=== PATIENT | male | born 1935 | race Caucasian/White ===

== ENCOUNTER → 2017-05-16 | Outpatient (CLI) | payer MEDICARE, OTHER ==
[~2017-05-16] MED LIST: ACETAMINOPHEN1 EAC4 PO; ADVIL200 MG PO; ALER-CAP25 M2 PO; ALPRAZOLAM0.25 M2 PO; ANTIBIOTIC; ASCORBIC ACID500 M3 PO; BISAC-EVAC10 MG PR; Cipro PO; DEXILANT30 MG PO; DEXILANT60 MG PO; DIAZEPAM5 MG PO; DILAUDID1 MG/ML IV; DURAGESIC12 MCG TD; DURAGESIC75 MCG TD; ENDOCET 5-3251 EACH PO; ENDOCET 7.5-321 EACH; FENTANYL1 EAC4 TD; FIORICET 50-301 EACH PO; FOLIC ACID1 MG PO; HYDROCODON-ACE1 EAC7 PO; HYDROCODON-ACE1 EAC8 PO; LORCET HD 10-31 EACH PO; MOTRIN IB200 MG PO; NEURONTIN300 MG PO; NORCO 10/3251 TABLET PO; ONDANSETRON4 MG/2 ML IV; PANTOPRAZOLE SO40 MG PO; POLYETHYLENE GL17 GM PO; ROXICODONE5 MG PO; SENNA8.6 MG PO; THERAGRAN1 TABLET PO; TYLENOL REGULA325 MG PO; Tylenol Regular Stre PO; Ultram PO; VIAGRA50 MG PO; ZANAFLEX4 MG PO; ZOFRAN ODT8 MG PO
== END | disposition home or self-care (01) ==
DX: R13.11 Dysphagia, oral phase (principal); R13.13 Dysphagia, pharyngeal phase; R07.0 Pain in throat
CPT/HCPCS: 92611 GN; G8996 GN; G8997 GN; G8998 GN

== ENCOUNTER 2017-09-23 15:34 | Inpatient (IN) | payer OTHER ==
[~2017-09-23] VITALS: Ht 175.3 cm; Wt 71.3 kg
[2017-09-23 16:07] LABS: EOSINOPHIL (%) 0 % (0-5); HEMATOCRIT 30.6 % (38.0-50.0); IMMATURE GRANULOCYTE (%) 0.1 % (0.0-0.7); INSTRUMENT ABS NEUTROPHIL CT 7.9 K/uL; LYMPHOCYTE COUNT 0.2 K/uL (1.0-2.8); MCH 28.9 PG (29.0-34.0); MCV 87.4 FL (86-99); MONOCYTE (%) 0.1 % (3-12); NEUTROPHIL (%) 97.8 % (45-76); NEUTROPHIL COUNT 7.9 K/uL (1.8-6.4); PLATELET COUNT 283 K/uL (156-360); RBC DIS.WIDTH-CV 13.5 % (11.8-14.6); RBC DIS.WIDTH-SD 43.6 % (39-53); WHITE BLOOD COUNT 8.1 K/uL (4.1-10.2)
[2017-09-23 16:09] LABS: ADD MIUA? YES; BILIRUBIN NEGATIVE; BLOOD LARGE; COLOR YELLOW ((YELLOW)); GLUCOSE (STRIP) NEGATIVE; KETONES NEGATIVE; LEUKOCYTES NEGATIVE; NITRITE NEGATIVE; PROTEIN (STRIP) 30; SPECIFIC GRAVITY 1.015 (1.000-1.030)
[2017-09-23 16:16] LABS: CHLORIDE 100 mEq/L (99-109); POTASSIUM 4.3 mEq/L (3.7-5.4); SODIUM 135 mEq/L (136-147)
[2017-09-23 16:16] LABS: BACTERIA NONE SEEN /HPF; EPITHELIAL CELLS RARE /HPF; MUCUS TRACE /LPF; RED BLOOD CELLS TNTC /HPF (0-5); UCUL ADDED? YES; WHITE BLOOD CELLS 0-5 /HPF (0-5)
[2017-09-23 16:18] LABS: GLUCOSE 109 mg/dL (70-99)
[2017-09-23 16:20] LABS: ANION GAP 11 MEQ/L (2-14)
[2017-09-23 16:22] LABS: GFR ESTIMATE (CALCULATED) > 59 mL/min/
[2017-09-23 16:23] LABS: UREA NITROGEN (BUN) 25 mg/dL (9-23)
[2017-09-23 17:45] LABS: BICARBONATE 28.5 mEq/L (22-26); COMMENTS - BLOOD GASES A+C+; DEVICE NC; METHEMOGLOBIN 0.8 % (0-1.5); O2 FLOW 1 L/MIN; PCO2 42 mm Hg (35-45); PO2 73 mm Hg (80-100); SITE RR; TOTAL RESP RATE 16 resp/min; pH 7.44 (7.35-7.45)
[2017-09-23 18:04] LABS: TROP-I INTERPRETATION NEGATIVE; TROPONIN-I 0.15 ng/mL (0.0-0.30)
[2017-09-23] MEDS ORDERED: OXYCODONE HCL5 MG PO (19:58)
[2017-09-23] MEDS ORDERED: MYRBETRIQ50 MG PO (19:59)
[2017-09-23] MEDS ORDERED: SERTRALINE HCL50 MG PO (19:59)
[2017-09-23] MEDS ORDERED: LYRICA75 MG PO ×2 (20:00→23:16)
[2017-09-23] MEDS ORDERED: MEDROL DOSEPAK4 MG PO (20:01)
[2017-09-23] MEDS ORDERED: VALIUM2 MG PO (20:02)
[2017-09-23] MEDS ORDERED: MULTIVITAMIN1 EAC2 PO (20:08)
[2017-09-23] MEDS ORDERED: ARTIFICIAL TEAR15 M1 BOTH EYES (20:09)
[2017-09-23 22:50] VITALS: BP 108/71
[2017-09-23 22:53] VITALS: BP 108/71
[2017-09-23 23:17] VITALS: BP 124/71
[2017-09-24] VITALS (12 sets, daily range): BP systolic 87–142; BP diastolic 54–85
[2017-09-24 00:08] LABS: INTER. NORMALIZED RATIO 1.3; PROTHROMBIN TIME 14.5 SEC (10.2-12.9)
[2017-09-24 00:10] LABS: PTT 27.6 SEC (25-37)
[2017-09-24 00:20] LABS: METH RESISTANT S AUREUS PCR NEGATIVE (NEGATIVE)
[2017-09-24 00:22] LABS: PROBE CHECK PASS; SPECIMEN PROCESSING CONTROL PASS
[2017-09-24 05:26] LABS: EOSINOPHIL (%) 0.1 % (0-5); HEMATOCRIT 26.4 % (38.0-50.0); IMMATURE GRANULOCYTE (%) 0.4 % (0.0-0.7); IMMATURE GRANULOCYTE COUNT 0.1 K/uL; INSTRUMENT ABS NEUTROPHIL CT 14.7 K/uL; LYMPHOCYTE COUNT 0.6 K/uL (1.0-2.8); MEAN PLAT.VOLUME 9.2 uM^3 (9.0-12.4); MONOCYTE (%) 4.4 % (3-12); MONOCYTE COUNT 0.7 K/uL (0-0.8); NEUTROPHIL (%) 91.6 % (45-76); NEUTROPHIL COUNT 14.7 K/uL (1.8-6.4); PLATELET COUNT 251 K/uL (156-360); RBC DIS.WIDTH-CV 13.7 % (11.8-14.6); RBC DIS.WIDTH-SD 44.3 % (39-53); WHITE BLOOD COUNT 16.1 K/uL (4.1-10.2)
[2017-09-24 05:55] LABS: ALKALINE PHOSPHATASE 114 IU/L (3-129); ANION GAP 6 MEQ/L (2-14); CHLORIDE 106 MEQ/L (99-109); GFR ESTIMATE (CALCULATED) > 59 mL/min/; GLUCOSE 101 mg/dL (70-99); MAGNESIUM 1.7 mg/dl (1.3-2.7); POTASSIUM 4.6 MEQ/L (3.7-5.4); SAMPLE HEMOLYSIS CHECK 0; SAMPLE ICTERIC CHECK 0; SAMPLE LIPEMIA CHECK 0; SODIUM 139 MEQ/L (136-147); TOTAL BILIRUBIN 0.4 MG/DL (0.0-1.0); UREA NITROGEN (BUN) 20 mg/dL (9-23)
[2017-09-25] VITALS (13 sets, daily range): BP systolic 101–157; BP diastolic 62–84
[2017-09-25 04:58] LABS: HEMATOCRIT 28.9 % (38.0-50.0); MCHC 32.9 G/DL (30.0-36.0); MCV 88.1 FL (86-99); MEAN PLAT.VOLUME 9.3 uM^3 (9.0-12.4); PLATELET COUNT 227 K/uL (156-360); RBC DIS.WIDTH-CV 13.9 % (11.8-14.6); RBC DIS.WIDTH-SD 45.2 % (39-53); RED BLOOD COUNT 3.28 M/uL (4.00-5.50); WHITE BLOOD COUNT 14.4 K/uL (4.1-10.2)
[2017-09-25 05:13] LABS: CHLORIDE 101 mEq/L (99-109); POTASSIUM 4.4 mEq/L (3.7-5.4); SODIUM 138 mEq/L (136-147)
[2017-09-25 05:14] LABS: MAGNESIUM 1.5 mg/dL (1.3-2.7)
[2017-09-25 05:16] LABS: GLUCOSE 147 mg/dL (70-99)
[2017-09-25 05:17] LABS: ANION GAP 11 MEQ/L (2-14)
[2017-09-25 05:19] LABS: GFR ESTIMATE (CALCULATED) > 59 mL/min/
[2017-09-25 05:20] LABS: UREA NITROGEN (BUN) 17 mg/dL (9-23)
[2017-09-25 06:31] LABS: EOSINOPHIL (%) 0 % (0-5); IMMATURE GRANULOCYTE (%) 0.6 % (0.0-0.7); IMMATURE GRANULOCYTE COUNT 0.1 K/uL; INSTRUMENT ABS NEUTROPHIL CT 13.2 K/uL; LYMPHOCYTE COUNT 0.5 K/uL (1.0-2.8); MONOCYTE (%) 4.5 % (3-12); MONOCYTE COUNT 0.6 K/uL (0-0.8); NEUTROPHIL (%) 91.5 % (45-76); NEUTROPHIL COUNT 13.2 K/uL (1.8-6.4)
[2017-09-26 03:00] VITALS: BP 136/75
[2017-09-26 08:30] VITALS: BP 93/53
[2017-09-26 12:00] VITALS: BP 132/74
[2017-09-26 16:40] VITALS: BP 117/75
[2017-09-26 19:00] VITALS: BP 123/69
[2017-09-26 23:15] VITALS: BP 141/71
[2017-09-27] VITALS (14 sets, daily range): BP systolic 78–180; BP diastolic 40–96
[2017-09-27 06:07] LABS: EOSINOPHIL (%) 0.1 % (0-5); HEMATOCRIT 27.8 % (38.0-50.0); IMMATURE GRANULOCYTE (%) 0.6 % (0.0-0.7); IMMATURE GRANULOCYTE COUNT 0.1 K/uL; INSTRUMENT ABS NEUTROPHIL CT 9.4 K/uL; LYMPHOCYTE COUNT 0.9 K/uL (1.0-2.8); MCH 28.1 PG (29.0-34.0); MCHC 33.1 G/DL (30.0-36.0); MEAN PLAT.VOLUME 9.7 uM^3 (9.0-12.4); MONOCYTE (%) 8.5 % (3-12); NEUTROPHIL (%) 82.8 % (45-76); NEUTROPHIL COUNT 9.4 K/uL (1.8-6.4); PLATELET COUNT 280 K/uL (156-360); RBC DIS.WIDTH-CV 13.8 % (11.8-14.6); RBC DIS.WIDTH-SD 43.4 % (39-53); RED BLOOD COUNT 3.27 M/uL (4.00-5.50); WHITE BLOOD COUNT 11.4 K/uL (4.1-10.2)
[2017-09-27 06:36] LABS: ANION GAP 8 MEQ/L (2-14); CHLORIDE 101 MEQ/L (99-109); GFR ESTIMATE (CALCULATED) > 59 mL/min/ (58.99-99999); POTASSIUM 4.1 MEQ/L (3.7-5.4); SAMPLE HEMOLYSIS CHECK 0; SAMPLE ICTERIC CHECK 0; SAMPLE LIPEMIA CHECK 0; SODIUM 137 MEQ/L (136-147); UREA NITROGEN (BUN) 20 mg/dL (9-23)
[2017-09-27 06:37] LABS: GLUCOSE 106 mg/dL (70-99)
[2017-09-27 18:33] LABS: POINT-OF-CARE METER ID UU14174216
[2017-09-27 19:07] LABS: EOSINOPHIL (%) 0.1 % (0-5); HEMATOCRIT 26.1 % (38.0-50.0); IMMATURE GRANULOCYTE (%) 1.2 % (0.0-0.7); IMMATURE GRANULOCYTE COUNT 0.3 K/uL; INSTRUMENT ABS NEUTROPHIL CT 19.7 K/uL; LYMPHOCYTE COUNT 1.1 K/uL (1.0-2.8); MCH 29.3 PG (29.0-34.0); MCHC 33.7 G/DL (30.0-36.0); MEAN PLAT.VOLUME 9.7 uM^3 (9.0-12.4); MONOCYTE (%) 4.6 % (3-12); NEUTROPHIL COUNT 19.7 K/uL (1.8-6.4); PLATELET COUNT 220 K/uL (156-360); RBC DIS.WIDTH-CV 14.2 % (11.8-14.6); RBC DIS.WIDTH-SD 44.8 % (39-53); WHITE BLOOD COUNT 22.2 K/uL (4.1-10.2)
[2017-09-28 02:24] VITALS: BP 121/84
[2017-09-28 06:12] LABS: ANION GAP 8 MEQ/L (2-14); CHLORIDE 105 MEQ/L (99-109); GFR ESTIMATE (CALCULATED) > 59 mL/min/ (58.99-99999); GLUCOSE 82 mg/dL (70-99); POTASSIUM 3.8 MEQ/L (3.7-5.4); SAMPLE HEMOLYSIS CHECK 0; SAMPLE ICTERIC CHECK 0; SAMPLE LIPEMIA CHECK 0; SODIUM 138 MEQ/L (136-147); UREA NITROGEN (BUN) 18 mg/dL (9-23)
[2017-09-28 06:50] LABS: EOSINOPHIL (%) 0 % (0-5); HEMATOCRIT 27.4 % (38.0-50.0); IMMATURE GRANULOCYTE (%) 0.6 % (0.0-0.7); IMMATURE GRANULOCYTE COUNT 0.1 K/uL; INSTRUMENT ABS NEUTROPHIL CT 14.8 K/uL; LYMPHOCYTE COUNT 0.5 K/uL (1.0-2.8); MCH 28.7 PG (29.0-34.0); MCHC 33.2 G/DL (30.0-36.0); MCV 86.4 FL (86-99); MONOCYTE (%) 2.4 % (3-12); MONOCYTE COUNT 0.4 K/uL (0-0.8); NEUTROPHIL (%) 93.9 % (45-76); NEUTROPHIL COUNT 14.8 K/uL (1.8-6.4); PLATELET COUNT 225 K/uL (156-360); RBC DIS.WIDTH-CV 14.3 % (11.8-14.6); RED BLOOD COUNT 3.17 M/uL (4.00-5.50); WHITE BLOOD COUNT 15.7 K/uL (4.1-10.2)
[2017-09-28 08:15] VITALS: BP 92/54
[2017-09-28 12:09] VITALS: BP 110/62
[2017-09-28 15:32] VITALS: BP 174/90
[2017-09-28 19:33] VITALS: BP 92/54
[2017-09-28 23:09] VITALS: BP 124/72
== END 2017-09-28 23:23 | disposition short-term general hospital (02) | DRG 871 ==
LOC: EME 15:34 → EDOF 20:43 → 4EAST 20:43 → 4WEST 20:43 → ENRESERV 20:44 → 4WEST 22:39 → ENRESERV 09-25 15:44 → 4EAST 09-25 20:01
PROVIDERS: Emergency Medicine; Hospitalist; Internal Medicine; Internal Medicine Critical Care Medicine; Specialist; Surgery
PROC: 02HV33Z Insertion of Infusion Device into Superior Vena Cava, Percutaneous Approach (ICD-10-PCS; principal; 2017-09-23)
DX: A40.9 Streptococcal sepsis, unspecified (principal); R65.21 Severe sepsis with septic shock; I35.8 Other nonrheumatic aortic valve disorders; R29.6 Repeated falls; M50.30 Other cervical disc degeneration, unspecified cervical region; R63.0 Anorexia; M25.521 Pain in right elbow; M25.522 Pain in left elbow; G89.29 Other chronic pain; M51.34 Other intervertebral disc degeneration, thoracic region; M48.061 Spinal stenosis, lumbar region without neurogenic claudication; J18.9 Pneumonia, unspecified organism; K59.00 Constipation, unspecified; M40.209 Unspecified kyphosis, site unspecified; R13.10 Dysphagia, unspecified; I95.9 Hypotension, unspecified; R09.02 Hypoxemia; K22.70 Barrett's esophagus without dysplasia; R74.8 Abnormal levels of other serum enzymes; Z96.651 Presence of right artificial knee joint; D64.9 Anemia, unspecified; M48.04 Spinal stenosis, thoracic region; E83.39 Other disorders of phosphorus metabolism; G62.9 Polyneuropathy, unspecified; K21.9 Gastro-esophageal reflux disease without esophagitis; M48.02 Spinal stenosis, cervical region; Z88.0 Allergy status to penicillin; Z98.1 Arthrodesis status; Z87.891 Personal history of nicotine dependence; Z87.442 Personal history of urinary calculi
CPT/HCPCS: 36600; 70450; 70553; 71010; 71020; 72125; 72156; 72157; 72158; 80048; 80053; 81003; 82330; 82803; 82948; 83605; 83735; 84100; 84484; 85025; 85025 91; 85610; 85730; 87040; 87070; 87086 GA; 87205; 87502; 87641; 87801; 93005; 93306; 99281; 99285; C1751; J0696; J1644; J1956; J2060; J2405; J2920; J3370; J7030; S0073

== ENCOUNTER 2017-12-01 20:34 | Emergency (ER) | payer OTHER ==
[~2017-12-01] VITALS: Ht 175.3 cm; Wt 61.8 kg
[~2017-12-01 20:34] MED LIST changes: +ARTIFICIAL TEAR15 M1 BOTH EYES; +LIDODERM 5% P1 PATCH TD; +LYRICA75 MG PO; +MEDROL DOSEPAK4 MG PO; +MELATONIN3 MG PO; +MIRALAX17 GM PO; +MULTIVITAMIN1 EAC2 PO; +MYRBETRIQ50 MG PO; +OXYCODONE HCL5 MG PO; +PERIDEX473 ML MM; +RIFAMPIN300 MG PO; +SERTRALINE HCL50 MG PO; +VALIUM2 MG PO
[2017-12-01 21:00] LABS: HEMATOCRIT 32.4 % (38.0-50.0); HEMOGLOBIN 10.9 G/DL (12.5-16.6); MCH 30.8 PG (29.0-34.0); MCHC 33.6 G/DL (30.0-36.0); MCV 91.5 FL (86-99); PLATELET COUNT 227 K/uL (156-360); RBC DIS.WIDTH-SD 50.7 % (39-53); RED BLOOD COUNT 3.54 M/uL (4.00-5.50); WHITE BLOOD COUNT 5.5 K/uL (4.1-10.2)
[2017-12-01 21:08] LABS: CHLORIDE 101 mEq/L (99-109); SODIUM 138 mEq/L (136-147)
[2017-12-01 21:09] LABS: GLUCOSE 118 mg/dL (70-99)
[2017-12-01 21:13] LABS: CREATININE 0.9 mg/dL (0.6-1.3); GFR ESTIMATE (CALCULATED) > 59 mL/min/ (58.99-99999)
[2017-12-01 21:14] LABS: UREA NITROGEN (BUN) 13 mg/dL (9-23)
[2017-12-01 23:11] LABS: APPEARANCE CLEAR ((CLEAR)); BILIRUBIN NEGATIVE; BLOOD NEGATIVE; COLOR YELLOW ((YELLOW)); GLUCOSE (STRIP) NEGATIVE; KETONES NEGATIVE; LEUKOCYTES NEGATIVE; NITRITE NEGATIVE; PROTEIN (STRIP) NEGATIVE; SPECIFIC GRAVITY 1.016 (1.000-1.030); UCUL ADDED? NO; UROBILINOGEN 0.2 MG/DL (0.2-1.0)
[2017-12-02 01:05] VITALS: BP 147/91
== END 2017-12-02 01:06 | disposition home or self-care (01) ==
LOC: EME 20:34
PROVIDERS: Emergency Medicine
DX: R50.9 Fever, unspecified (principal); R05 Cough; K21.9 Gastro-esophageal reflux disease without esophagitis; Z95.828 Presence of other vascular implants and grafts; Z87.891 Personal history of nicotine dependence; Z87.442 Personal history of urinary calculi; Z87.19 Personal history of other diseases of the digestive system; Z88.0 Allergy status to penicillin
CPT/HCPCS: 71046; 80048; 81003; 83605; 85027; 87040; 87502; 93005; 99281; 99284